=== PATIENT | female | born 1975 | race Caucasian/White ===

== ENCOUNTER 2018-01-12 16:07 | Observation (INO) | payer SELFPAY ==
--- NOTE | 2018-01-12 16:34 | EDM.PDOC ---
ED HPI GENERAL MEDICAL PROBLEM - General Chief Complaint: Abdominal Pain Stated Complaint: BRUSING ON ABDOMEN Time Seen by Provider: 01/12/18 16:08 Source of Information: Reports: Patient History Limitations: Reports: No Limitations - History of Present Illness INITIAL COMMENTS - FREE TEXT/NARRATIVE: HISTORY AND PHYSICAL: History of present illness: Patient is a 42-year-old female who presents to the emergency room today with complaints of abdominal pain. She states she routinely gets herself Lovenox injections and had noticed that the bruising was more extensive than normal. she states she has a pressure-type feeling across her abdomen with tenderness to palpation. This pressure in her abdomen "makes me feel almost short of breathe". Denies any fever, chills, chest pain or cough.denies any vomiting, diarrhea, constipation or dysuria. She states that she does have a history of chief and has been monitoring her stools, no blood noted in her urine or stools. She reports she has an implant form of control but has not had a menstrual period in 2 months. She states this is unusual for her and she is" very regular". Denies any concerns of as she has not been sexually active over the last few months, and has no concerns of STDs. History of Hypothyroidism, anemia and GI bleed requiring multiple blood transfusions, bowel obstruction, and Review of systems: As per history of present illness and below otherwise all systems reviewed and negative. Past medical history: As per history of present illness and as reviewed below otherwise noncontributory. Surgical history: As per history of present illness and as reviewed below otherwise noncontributory. Social history: No reported history of drug or alcohol abuse. Family history: As per history of present illness and as reviewed below otherwise noncontributory. Physical exam: General: well-developed and well-nourished 42-year-old female. Alert and oriented. Nontoxic appearing and in no acute distress. HEENT: Atraumatic, normocephalic, pupils equal and reactive bilaterally, negative for conjunctival pallor or scleral icterus, mucous membranes moist, throat clear, neck supple, nontender, trachea midline. No drooling or trismus noted. No meningeal signs Lungs: Clear to auscultation, breath sounds equal bilaterally, chest nontender. Heart: S1S2, regular rate and rhythm without overt murmur Abdomen: Soft, nondistended, diffuse tenderness throughout. Negative for masses or hepatosplenomegaly. Negative for costovertebral tenderness. Pelvis: Stable nontender. Genitourinary: Deferred. Rectal: Deferred. Skin: Large bruise noted above the umbilicus wrapping around to the left side, appears to be healing. Old midline scar below umbilicus. Intact, warm, dry. No lesions or rashes noted. Extremities: Atraumatic, moves all extremities per self without difficulty or deficits, negative for cords or calf pain. Neurovascular unremarkable. Neuro: Awake, alert, oriented. Cranial nerves II through XII unremarkable. Cerebellum unremarkable. Motor and sensory unremarkable throughout. Exam nonfocal. Notes: Elevated AST/ALT and amylase/lipase. CT shows koko distended to the upper limits of normal the small bowel loops in the abdomen and pelvis could be an early partial small bowel obstruction or an ileus. Dr Ruiz was consulted on this case and is agreeable to keeping this patient for observation. TSH is elevated, will inform admitting MD. Diagnostics: CBC, CMP, UA, HCGU, TSH, Abdomen/Pelvis CT, amylase, lipase Therapeutics: IV fluids, Zofran, Toradol Impression: Hypothyroidism Intractable abdominal Pain Plan: Observation admission to med/surg via Dr Ruiz Definitive disposition and diagnosis as appropriate pending reevaluation and review of above. Abdominal Pain Score (Numeric/FACES): 5 - Related Data Allergies Allergy/AdvReac Type Severity Reaction Status Date / Time latex Allergy Airway Verified 01/12/18 16:34 Tightness Home Meds: Home Meds Levothyroxine 2 tab PO DAILY 10/24/13 [History] Pain Pil Hydrocodone 1 tab PO ASDIRECTED PRN 04/30/14 [History] lamoTRIgine [LaMICtal] 150 mg PO BID 08/30/14 [History] Past Medical History Other Neuro History: Chronic jaw pain: Trigeminal neuralgia ED ROS GENERAL - Review of Systems Review Of Systems: ROS reveals no pertinent complaints other than HPI. ED EXAM, GI/ABD - Physical Exam Exam: See Below (See dictation) Course - Vital Signs Last Recorded V/S: Last Vital Signs Temp 97.9 F 01/12/18 21:19 Pulse 71 01/12/18 21:19 Resp 18 01/12/18 21:19 BP 126/93 H 01/12/18 21:19 Pulse Ox 97 01/12/18 21:19 - Orders/Labs/Meds Orders: Active Orders 24 hr Category Date Time Status Admission Status [Patient Status] [ADT] Stat ADT 01/12/18 19:17 Active Notify Provider Consults [RC] ASDIRECTED Care 01/12/18 19:19 Active Consult to Physician [CONS] Stat Cons 01/12/18 19:18 Active Nothing per Oral Now Diet [DIET] Diet 01/13/18 Breakfast Active Abdomen Pelvis w Cont [CT] Stat Exams 01/12/18 17:02 Taken HCG QUALITATIVE,URINE [URCHEM] Stat Lab 01/12/18 16:50 Ordered UA W/MICROSCOPIC [URIN] Stat Lab 01/12/18 16:50 Ordered Medication Orders Acetaminophen (Tylenol) 325 mg PO Q6H PRN PRN Reason: Pain Lactated Ringer's (Ringers, Lactated) 1,000 mls @ 125 mls/hr IV ASDIRECTED ANNALISE Pantoprazole Sodium (Protonix Iv) 40 mg IVPUSH DAILY ANNALISE Labs: Laboratory Tests 01/12/18 01/12/18 01/12/18 Range/Units 16:50 16:50 16:52 WBC 8.90 (4.0-11.0) K/uL RBC 3.94 L (4.30-5.90) M/uL Hgb 12.9 (12.0-16.0) g/dL Hct 37.8 (36.0-46.0) % MCV 95.9 (80.0-98.0) fL MCH 32.7 H (27.0-32.0) pg MCHC 34.1 (31.0-37.0) g/dL RDW Std Deviation 49.8 (28.0-62.0) fl RDW Coeff of Eris 14 (11.0-15.0) % Plt Count 369 (150-400) K/uL MPV 9.50 (7.40-12.00) fL Neut % (Auto) 52.3 (48.0-80.0) % Lymph % (Auto) 32.7 (16.0-40.0) % [place] % (Auto) 7.8 (0.0-15.0) % Eos % (Auto) 6.1 (0.0-7.0) % Baso % (Auto) 1.1 (0.0-1.5) % Neut # (Auto) 4.7 (1.4-5.7) K/uL Lymph # (Auto) 2.9 H (0.6-2.4) K/uL [place] # (Auto) 0.7 (0.0-0.8) K/uL Eos # (Auto) 0.5 (0.0-0.7) K/uL Baso # (Auto) 0.1 (0.0-0.1) K/uL Nucleated RBC % 0.0 /100WBC Nucleated RBCs # 0 K/uL Sodium (136-145) mmol/L Potassium (3.5-5.1) mmol/L Chloride (98-107) mmol/L Carbon Dioxide (21.0-32.0) mmol/L BUN (7.0-18.0) mg/dL Creatinine (0.6-1.0) mg/dL Est Cr Clr Drug Dosing mL/min Estimated GFR (MDRD) ml/min Glucose (74-106) mg/dL Calcium (8.5-10.1) mg/dL Total Bilirubin (0.2-1.0) mg/dL AST (15-37) IU/L ALT (14-63) IU/L Alkaline Phosphatase (46-116) U/L Total Protein (6.4-8.2) g/dL Albumin (3.4-5.0) g/dL Globulin (2.0-3.5) g/dL Albumin/Globulin Ratio (1.3-2.8) Amylase (25-115) U/L Lipase (73-393) U/L Free T4 (0.76-1.46) ng/dL TSH 3rd Generation (0.36-3.74) uIU/mL Urine Color YELLOW Urine Appearance CLEAR Urine pH 6.5 (5.0-8.0) Ur Specific Excel 1.010 (1.001-1.035) Urine Protein NEGATIVE (NEGATIVE) mg/dL Urine Glucose (UA) NEGATIVE (NEGATIVE) mg/dL Urine Ketones NEGATIVE (NEGATIVE) mg/dL Urine Occult Blood NEGATIVE (NEGATIVE) Urine Nitrite NEGATIVE (NEGATIVE) Urine Bilirubin NEGATIVE (NEGATIVE) Urine Urobilinogen 0.2 (<2.0) EU/dL Ur Leukocyte Esterase NEGATIVE (NEGATIVE) Urine RBC 0-1 (0-2/HPF) Urine WBC 0-1 (0-5/HPF) Ur Epithelial Cells FEW (NONE-FEW) Urine Bacteria RARE (NEGATIVE) Urine HCG, Qual NEGATIVE (NEGATIVE) 01/12/18 01/12/18 01/12/18 Range/Units 16:52 16:52 16:52 WBC (4.0-11.0) K/uL RBC (4.30-5.90) M/uL Hgb (12.0-16.0) g/dL Hct (36.0-46.0) % MCV (80.0-98.0) fL MCH (27.0-32.0) pg MCHC (31.0-37.0) g/dL RDW Std Deviation (28.0-62.0) fl RDW Coeff of Eris (11.0-15.0) % Plt Count (150-400) K/uL MPV (7.40-12.00) fL Neut % (Auto) (48.0-80.0) % Lymph % (Auto) (16.0-40.0) % [place] % (Auto) (0.0-15.0) % Eos % (Auto) (0.0-7.0) % Baso % (Auto) (0.0-1.5) % Neut # (Auto) (1.4-5.7) K/uL Lymph # (Auto) (0.6-2.4) K/uL [place] # (Auto) (0.0-0.8) K/uL Eos # (Auto) (0.0-0.7) K/uL Baso # (Auto) (0.0-0.1) K/uL Nucleated RBC % /100WBC Nucleated RBCs # K/uL Sodium 139 (136-145) mmol/L Potassium 4.0 (3.5-5.1) mmol/L Chloride 104 (98-107) mmol/L Carbon Dioxide 26.5 (21.0-32.0) mmol/L BUN 13 (7.0-18.0) mg/dL Creatinine 0.9 (0.6-1.0) mg/dL Est Cr Clr Drug Dosing 65.72 mL/min Estimated GFR (MDRD) > 60.0 ml/min Glucose 77 (74-106) mg/dL Calcium 8.7 (8.5-10.1) mg/dL Total Bilirubin 0.1 L (0.2-1.0) mg/dL AST 142 H (15-37) IU/L ALT 309 H (14-63) IU/L Alkaline Phosphatase 42 L (46-116) U/L Total Protein 7.0 (6.4-8.2) g/dL Albumin 3.7 (3.4-5.0) g/dL Globulin 3.3 (2.0-3.5) g/dL Albumin/Globulin Ratio 1.1 L (1.3-2.8) Amylase 134 H (25-115) U/L Lipase 475 H (73-393) U/L Free T4 0.12 L (0.76-1.46) ng/dL TSH 3rd Generation 210.19 H (0.36-3.74) uIU/mL Urine Color Urine Appearance Urine pH (5.0-8.0) Ur Specific Excel (1.001-1.035) Urine Protein (NEGATIVE) mg/dL Urine Glucose (UA) (NEGATIVE) mg/dL Urine Ketones (NEGATIVE) mg/dL Urine Occult Blood (NEGATIVE) Urine Nitrite (NEGATIVE) Urine Bilirubin (NEGATIVE) Urine Urobilinogen (<2.0) EU/dL Ur Leukocyte Esterase (NEGATIVE) Urine RBC (0-2/HPF) Urine WBC (0-5/HPF) Ur Epithelial Cells (NONE-FEW) Urine Bacteria (NEGATIVE) Urine HCG, Qual (NEGATIVE) Meds: Medications Generic Name Dose Route Start Last Admin Trade Name Freq PRN Reason Stop Dose Admin Acetaminophen 325 mg 01/12/18 21:26 Tylenol PO Q6H PRN Pain Lactated Ringer's 1,000 mls @ 125 mls/hr 01/12/18 21:30 Ringers, Lactated IV ASDIRECTED ANNALISE Pantoprazole Sodium 40 mg 01/13/18 09:00 Protonix Iv IVPUSH DAILY ANNALISE Discontinued Medications Generic Name Dose Route Start Last Admin Trade Name Freq PRN Reason Stop Dose Admin Sodium Chloride 1,000 mls @ 999 mls/hr 01/12/18 16:35 01/12/18 16:54 Normal Saline IV 01/12/18 17:35 999 mls/hr STAT ONE Administration Lactated Ringer's 1,000 mls @ 125 mls/hr 01/12/18 19:30 Ringers, Lactated IV ASDIRECTED [facility] Iopamidol 80 ml 01/12/18 18:12 01/12/18 18:13 Isovue-370 (76%) IVPUSH 01/12/18 18:13 80 ml ONETIME ONE Administration Ketorolac Tromethamine 30 mg 01/12/18 16:35 01/12/18 17:33 Toradol IVPUSH 01/12/18 16:36 Not Given ONETIME ONE Morphine Sulfate 2 mg 01/12/18 17:12 01/12/18 17:28 Morphine IVPUSH 01/12/18 17:13 2 mg ONETIME ONE Administration Morphine Sulfate 2 mg 01/12/18 18:42 01/12/18 18:50 Morphine IVPUSH 01/12/18 18:43 2 mg ONETIME ONE Administration Ondansetron HCl 4 mg 01/12/18 16:39 01/12/18 17:28 Zofran IVPUSH 01/12/18 16:40 4 mg ONETIME ONE Administration Departure - Departure Time of Disposition: 19:16 Disposition: Refer to Observation Clinical Impression: Hypothyroidism Qualifiers: Hypothyroidism type: unspecified Qualified Code(s): E03.9 - Hypothyroidism, unspecified Abdominal pain Qualifiers: Abdominal location: generalized Qualified Code(s): R10.84 - Generalized abdominal pain - Discharge Information - My Orders Last 24 Hours: My Active Orders 01/12/18 16:50 HCG QUALITATIVE,URINE [URCHEM] Stat UA W/MICROSCOPIC [URIN] Stat 01/12/18 17:02 Abdomen Pelvis w Cont [CT] Stat 01/12/18 19:17 Admission Status [Patient Status] [ADT] Stat 01/12/18 19:18 Consult to Physician [CONS] Stat 01/12/18 19:19 Notify Provider Consults [RC] ASDIRECTED 01/13/18 Breakfast Nothing per Oral Now Diet [DIET] - Assessment/Plan Last 24 Hours: My Active Orders 01/12/18 16:50 HCG QUALITATIVE,URINE [URCHEM] Stat UA W/MICROSCOPIC [URIN] Stat 01/12/18 17:02 Abdomen Pelvis w Cont [CT] Stat 01/12/18 19:17 Admission Status [Patient Status] [ADT] Stat 01/12/18 19:18 Consult to Physician [CONS] Stat 01/12/18 19:19 Notify Provider Consults [RC] ASDIRECTED 01/13/18 Breakfast Nothing per Oral Now Diet [DIET]
[2018-01-12] MEDS ORDERED: Sodium Chloride 0.9% 1,000 ML IV ONE (16:35)
[2018-01-12] MEDS ORDERED: Ketorolac 30 MG/ML SDV IVPUSH ONE (16:35)
[2018-01-12] MEDS ORDERED: Ondansetron 4 MG/2 ML SDV IVPUSH ONE (16:39)
[2018-01-12] MEDS ORDERED: Morphine 2 MG/ML Syringe IVPUSH ONE ×2 (17:12→18:42)
[2018-01-12 17:29] LABS: CHLORIDE,CL 104 mmol/L (98-107); SODIUM,NA 139 mmol/L (136-145)
[2018-01-12] MEDS ORDERED: Iopamidol 755 Mg/ML 100 ML Bottle IVPUSH ONE (18:12)
[2018-01-12] MEDS ORDERED: Lactated Ringers 1,000 ML IV SCH ×2 (19:30→21:30)
[2018-01-12] MEDS ORDERED: LORazepam 2 MG/ML SDV IVPUSH ONE (23:55)
--- NOTE | 2018-01-13 04:14 | CONS ---
DATE OF CONSULTATION: 01/12/2018 DATE OF : 1975 PRIMARY CARE PHYSICIAN: Ar Barnett M.D. A consult from the emergency room and also dictated as a history and physical. CONCERNING QUESTION: Possible small-bowel obstruction. HISTORY OF PRESENT ILLNESS: The patient is a 42-year-old lady with a very complex medical history and also because of her voice, sometimes things are not be easy to understand. The best I can make out, the patient was having abdominal pain and seen in the emergency room. Got a CAT scan. The CAT scan reads as early possible small-bowel obstruction versus ileus. Surgery was then consulted. The patient remarked that her diffuse abdominal bloating had been going on for 3 days and denied has abdominal pain but is complaining of discomfort. The patient had a history of SBO in the past in 2006 and denied today's feeling as the same as last time. The patient said today's feeling is much milder. Currently, she denied nausea or vomiting. She had a well-formed stool a couple hours ago in the emergency room. The best I can make out the patient to be on and off the Lovenox injection, increase dose of Coumadin, and then stop things like that. Apparently, the patient has PE in 2002 and then was treated with Lovenox injection, and then, the patient had gastric bypass in 2003 in [place], and then the treatment for the PE was finished, and she was happy until 2013, I believe that blood clot causes stroke and then anticoagulation restarted. More recently, I do not known when, she had oral surgery and all the Lovenox was stopped except one injection and the story kept on going. It is complicated and complex and cannot make out the timeframe, so fine to say she is not on anything right now regarding anticoagulation. In the emergency room, workup, white count is 8.9, H and H are 13 and 38. Total bilirubin is 0.1. AST and ALT are elevated to 100 and 300. Alkaline phosphatase is low at 42, and CK was high at 390. Amylase and lipase are also elevated. The TSH was elevated to 10, normal is 3.7. UA has no signs or symptoms of infection. The vitamin B12 was normal at 168. PAST MEDICAL HISTORY: Significant for no diabetes or NH. The patient has CVA, PE, and blood clot in the lower extremity and has been treated. PAST SURGICAL HISTORY: x3 and gastric bypass. SOCIAL HISTORY: The patient does not drink. FAMILY HISTORY: Noncontributory. ALLERGIES: Please refer to nursing for details. MEDICATION: Please refer to nursing for details. PHYSICAL EXAMINATION: GENERAL: A very pleasant lady, speaking in a very, very weird voice, getting clear later, in no acute distress. HEENT: Normocephalic and atraumatic. Sclerae anicteric. LUNGS: Clear to auscultation. HEART: Regular rate and rhythm. ABDOMEN: Soft, nondistended. No pulsating tender midline abdominal structure. Large bruise periumbilical and spanning about 12 cm. Normal bowel sounds. Nontender. IMPRESSION AND PLAN: Abdominal pain with the CT suggests ileus versus early possible small-bowel obstruction, well-formed stool just right now, and there was no blood and normal brown color. The patient will be admitted to observation, and depends on the morning if the situation not getting better, may repeat CAT scan with p.o. and IV contrast and repeat white count. For the time being n.p.o. except ice chips. We will consult hospitalist in the morning. As always, thank you for the kind referral. CJ / CORAL /[id number]
[2018-01-13] MEDS: Acetaminophen 325 MG/10.15 ML ML PO PRN ×2 (04:26→11:02)
[2018-01-13 06:32] LABS: CHLORIDE,CL 105 mmol/L (98-107); SODIUM,NA 140 mmol/L (136-145)
--- NOTE | 2018-01-13 08:40 | PCM.SURGPN ---
- General Info Date of Service: 01/13/18 Functional Status: Reports: Pain Controlled ("I have no pain" and passing gas) - Patient Data Vitals - Most Recent: Last Vital Signs Temp 97.5 F 01/13/18 04:00 Pulse 59 L 01/13/18 04:00 Resp 17 01/13/18 04:00 BP 104/67 01/13/18 04:00 Pulse Ox 97 01/13/18 04:00 Weight - Most Recent: 161 lb 3.2 oz I&O - Last 24 Hours: Intake & Output 01/12/18 01/13/18 01/13/18 22:59 06:59 14:59 Intake Total 800 Output Total 1400 Balance -600 Lab Results Last 24 Hrs: Laboratory Results - last 24 hr 01/12/18 01/12/18 01/12/18 Range/Units 16:50 16:50 16:52 WBC 8.90 (4.0-11.0) K/uL RBC 3.94 L (4.30-5.90) M/uL Hgb 12.9 (12.0-16.0) g/dL Hct 37.8 (36.0-46.0) % MCV 95.9 (80.0-98.0) fL MCH 32.7 H (27.0-32.0) pg MCHC 34.1 (31.0-37.0) g/dL RDW Std Deviation 49.8 (28.0-62.0) fl RDW Coeff of Eris 14 (11.0-15.0) % Plt Count 369 (150-400) K/uL MPV 9.50 (7.40-12.00) fL Neut % (Auto) 52.3 (48.0-80.0) % Lymph % (Auto) 32.7 (16.0-40.0) % [place] % (Auto) 7.8 (0.0-15.0) % Eos % (Auto) 6.1 (0.0-7.0) % Baso % (Auto) 1.1 (0.0-1.5) % Neut # (Auto) 4.7 (1.4-5.7) K/uL Lymph # (Auto) 2.9 H (0.6-2.4) K/uL [place] # (Auto) 0.7 (0.0-0.8) K/uL Eos # (Auto) 0.5 (0.0-0.7) K/uL Baso # (Auto) 0.1 (0.0-0.1) K/uL Nucleated RBC % 0.0 /100WBC Nucleated RBCs # 0 K/uL Sodium (136-145) mmol/L Potassium (3.5-5.1) mmol/L Chloride (98-107) mmol/L Carbon Dioxide (21.0-32.0) mmol/L BUN (7.0-18.0) mg/dL Creatinine (0.6-1.0) mg/dL Est Cr Clr Drug Dosing mL/min Estimated GFR (MDRD) ml/min Glucose (74-106) mg/dL Calcium (8.5-10.1) mg/dL Total Bilirubin (0.2-1.0) mg/dL AST (15-37) IU/L ALT (14-63) IU/L Alkaline Phosphatase (46-116) U/L Total Protein (6.4-8.2) g/dL Albumin (3.4-5.0) g/dL Globulin (2.0-3.5) g/dL Albumin/Globulin Ratio (1.3-2.8) Amylase (25-115) U/L Lipase (73-393) U/L Free T4 (0.76-1.46) ng/dL TSH 3rd Generation (0.36-3.74) uIU/mL Urine Color YELLOW Urine Appearance CLEAR Urine pH 6.5 (5.0-8.0) Ur Specific [place] 1.010 (1.001-1.035) Urine Protein NEGATIVE (NEGATIVE) mg/dL Urine Glucose (UA) NEGATIVE (NEGATIVE) mg/dL Urine Ketones NEGATIVE (NEGATIVE) mg/dL Urine Occult Blood NEGATIVE (NEGATIVE) Urine Nitrite NEGATIVE (NEGATIVE) Urine Bilirubin NEGATIVE (NEGATIVE) Urine Urobilinogen 0.2 (<2.0) EU/dL Ur Leukocyte Esterase NEGATIVE (NEGATIVE) Urine RBC 0-1 (0-2/HPF) Urine WBC 0-1 (0-5/HPF) Ur Epithelial Cells FEW (NONE-FEW) Urine Bacteria RARE (NEGATIVE) Urine HCG, Qual NEGATIVE (NEGATIVE) 01/12/18 01/12/18 01/12/18 Range/Units 16:52 16:52 16:52 WBC (4.0-11.0) K/uL RBC (4.30-5.90) M/uL Hgb (12.0-16.0) g/dL Hct (36.0-46.0) % MCV (80.0-98.0) fL MCH (27.0-32.0) pg MCHC (31.0-37.0) g/dL RDW Std Deviation (28.0-62.0) fl RDW Coeff of Eris (11.0-15.0) % Plt Count (150-400) K/uL MPV (7.40-12.00) fL Neut % (Auto) (48.0-80.0) % Lymph % (Auto) (16.0-40.0) % [place] % (Auto) (0.0-15.0) % Eos % (Auto) (0.0-7.0) % Baso % (Auto) (0.0-1.5) % Neut # (Auto) (1.4-5.7) K/uL Lymph # (Auto) (0.6-2.4) K/uL [place] # (Auto) (0.0-0.8) K/uL Eos # (Auto) (0.0-0.7) K/uL Baso # (Auto) (0.0-0.1) K/uL Nucleated RBC % /100WBC Nucleated RBCs # K/uL Sodium 139 (136-145) mmol/L Potassium 4.0 (3.5-5.1) mmol/L Chloride 104 (98-107) mmol/L Carbon Dioxide 26.5 (21.0-32.0) mmol/L BUN 13 (7.0-18.0) mg/dL Creatinine 0.9 (0.6-1.0) mg/dL Est Cr Clr Drug Dosing 65.72 mL/min Estimated GFR (MDRD) > 60.0 ml/min Glucose 77 (74-106) mg/dL Calcium 8.7 (8.5-10.1) mg/dL Total Bilirubin 0.1 L (0.2-1.0) mg/dL AST 142 H (15-37) IU/L ALT 309 H (14-63) IU/L Alkaline Phosphatase 42 L (46-116) U/L Total Protein 7.0 (6.4-8.2) g/dL Albumin 3.7 (3.4-5.0) g/dL Globulin 3.3 (2.0-3.5) g/dL Albumin/Globulin Ratio 1.1 L (1.3-2.8) Amylase 134 H (25-115) U/L Lipase 475 H (73-393) U/L Free T4 0.12 L (0.76-1.46) ng/dL TSH 3rd Generation 210.19 H (0.36-3.74) uIU/mL Urine Color Urine Appearance Urine pH (5.0-8.0) Ur Specific [place] (1.001-1.035) Urine Protein (NEGATIVE) mg/dL Urine Glucose (UA) (NEGATIVE) mg/dL Urine Ketones (NEGATIVE) mg/dL Urine Occult Blood (NEGATIVE) Urine Nitrite (NEGATIVE) Urine Bilirubin (NEGATIVE) Urine Urobilinogen (<2.0) EU/dL Ur Leukocyte Esterase (NEGATIVE) Urine RBC (0-2/HPF) Urine WBC (0-5/HPF) Ur Epithelial Cells (NONE-FEW) Urine Bacteria (NEGATIVE) Urine HCG, Qual (NEGATIVE) 01/13/18 01/13/18 Range/Units 05:55 05:55 WBC 8.36 (4.0-11.0) K/uL RBC 3.75 L (4.30-5.90) M/uL Hgb 12.0 (12.0-16.0) g/dL Hct 36.0 (36.0-46.0) % MCV 96.0 (80.0-98.0) fL MCH 32.0 (27.0-32.0) pg MCHC 33.3 (31.0-37.0) g/dL RDW Std Deviation 49.5 (28.0-62.0) fl RDW Coeff of Eris 14 (11.0-15.0) % Plt Count 344 (150-400) K/uL MPV 9.70 (7.40-12.00) fL Neut % (Auto) 44.5 L (48.0-80.0) % Lymph % (Auto) 37.7 (16.0-40.0) % [place] % (Auto) 7.9 (0.0-15.0) % Eos % (Auto) 8.3 H (0.0-7.0) % Baso % (Auto) 1.6 H (0.0-1.5) % Neut # (Auto) 3.7 (1.4-5.7) K/uL Lymph # (Auto) 3.2 H (0.6-2.4) K/uL [place] # (Auto) 0.7 (0.0-0.8) K/uL Eos # (Auto) 0.7 (0.0-0.7) K/uL Baso # (Auto) 0.1 (0.0-0.1) K/uL Nucleated RBC % 0.0 /100WBC Nucleated RBCs # 0 K/uL Sodium 140 (136-145) mmol/L Potassium 4.2 (3.5-5.1) mmol/L Chloride 105 (98-107) mmol/L Carbon Dioxide 30.1 (21.0-32.0) mmol/L BUN 9 (7.0-18.0) mg/dL Creatinine 1.0 (0.6-1.0) mg/dL Est Cr Clr Drug Dosing 59.15 mL/min Estimated GFR (MDRD) > 60.0 ml/min Glucose 78 (74-106) mg/dL Calcium 7.9 L (8.5-10.1) mg/dL Total Bilirubin 0.1 L (0.2-1.0) mg/dL AST 142 H (15-37) IU/L ALT 263 H (14-63) IU/L Alkaline Phosphatase 32 L (46-116) U/L Total Protein 5.7 L (6.4-8.2) g/dL Albumin 3.0 L (3.4-5.0) g/dL Globulin 2.7 (2.0-3.5) g/dL Albumin/Globulin Ratio 1.1 L (1.3-2.8) Amylase (25-115) U/L Lipase (73-393) U/L Free T4 (0.76-1.46) ng/dL TSH 3rd Generation (0.36-3.74) uIU/mL Urine Color Urine Appearance Urine pH (5.0-8.0) Ur Specific [place] (1.001-1.035) Urine Protein (NEGATIVE) mg/dL Urine Glucose (UA) (NEGATIVE) mg/dL Urine Ketones (NEGATIVE) mg/dL Urine Occult Blood (NEGATIVE) Urine Nitrite (NEGATIVE) Urine Bilirubin (NEGATIVE) Urine Urobilinogen (<2.0) EU/dL Ur Leukocyte Esterase (NEGATIVE) Urine RBC (0-2/HPF) Urine WBC (0-5/HPF) Ur Epithelial Cells (NONE-FEW) Urine Bacteria (NEGATIVE) Urine HCG, Qual (NEGATIVE) Med Orders - Current: Current Medications Acetaminophen (Tylenol) 325 mg PO Q6H PRN PRN Reason: Pain Last Admin: 01/13/18 04:26 Dose: 325 mg Lactated Ringer's (Ringers, Lactated) 1,000 mls @ 125 mls/hr IV ASDIRECTED [facility] Last Admin: 01/13/18 05:09 Dose: 125 mls/hr Pantoprazole Sodium (Protonix Iv) 40 mg IVPUSH DAILY [facility] Last Admin: 01/13/18 08:29 Dose: 40 mg Discontinued Medications Sodium Chloride (Normal Saline) 1,000 mls @ 999 mls/hr IV STAT ONE Stop: 01/12/18 17:35 Last Admin: 01/12/18 16:54 Dose: 999 mls/hr Lactated Ringer's (Ringers, Lactated) 1,000 mls @ 125 mls/hr IV ASDIRECTED [facility] Iopamidol (Isovue-370 (76%)) 80 ml IVPUSH ONETIME ONE Stop: 01/12/18 18:13 Last Admin: 01/12/18 18:13 Dose: 80 ml Ketorolac Tromethamine (Toradol) 30 mg IVPUSH ONETIME ONE Stop: 01/12/18 16:36 Last Admin: 01/12/18 17:33 Dose: Not Given Lorazepam (Ativan) 0.5 mg IVPUSH ONETIME ONE Stop: 01/12/18 23:56 Last Admin: 01/13/18 04:25 Dose: 0.5 mg Morphine Sulfate (Morphine) 2 mg IVPUSH ONETIME ONE Stop: 01/12/18 17:13 Last Admin: 01/12/18 17:28 Dose: 2 mg Morphine Sulfate (Morphine) 2 mg IVPUSH ONETIME ONE Stop: 01/12/18 18:43 Last Admin: 01/12/18 18:50 Dose: 2 mg Ondansetron HCl (Zofran) 4 mg IVPUSH ONETIME ONE Stop: 01/12/18 16:40 Last Admin: 01/12/18 17:28 Dose: 4 mg - Exam Lungs: Clear to Auscultation GI/Abdominal Exam: Normal Bowel Sounds, Soft, Non-Tender - Problem List Review Problem List Initiated/Reviewed/Updated: Yes - My Orders Last 24 Hours: Active Orders 24 hr Category Date Time Status Admission Status [Patient Status] [ADT] Routine ADT 01/12/18 21:24 Active Admission Status [Patient Status] [ADT] Stat ADT 01/12/18 19:17 Active Notify Provider Consults [RC] ASDIRECTED Care 01/12/18 19:19 Active Consult to Physician [CONS] Stat Cons 01/12/18 19:18 Active Clear Liquid Diet [DIET] Diet 01/13/18 Lunch Ordered NPO Now [Nothing per Oral Now Diet] [DIET] Diet 01/12/18 Dinner Active Abdomen Pelvis w Cont [CT] Stat Exams 01/12/18 17:02 Taken HCG QUALITATIVE,URINE [URCHEM] Stat Lab 01/12/18 16:50 Ordered UA W/MICROSCOPIC [URIN] Stat Lab 01/12/18 16:50 Ordered Acetaminophen [Tylenol] Med 01/12/18 21:26 Active 325 mg PO Q6H PRN Lactated Ringers [Ringers, Lactated] 1,000 ml Med 01/12/18 21:30 Active IV ASDIRECTED Pantoprazole [ProTONIX IV] Med 01/13/18 09:00 Active 40 mg IVPUSH DAILY Medication Orders Acetaminophen (Tylenol) 325 mg PO Q6H PRN PRN Reason: Pain Last Admin: 01/13/18 04:26 Dose: 325 mg Lactated Ringer's (Ringers, Lactated) 1,000 mls @ 125 mls/hr IV ASDIRECTED [facility] Last Admin: 01/13/18 05:09 Dose: 125 mls/hr Pantoprazole Sodium (Protonix Iv) 40 mg IVPUSH DAILY [facility] Last Admin: 01/13/18 08:29 Dose: 40 mg - Assessment Assessment (Free Text/Narrative):: Resolving ileus, start on po clear liquid; if elvi, will dc home and fu in 1 wk - Plan Plan (Free Text/Narrative):: Resolving ileus, start on po clear liquid; if elvi, will dc home and fu in 1 wk
[2018-01-13] MEDS ORDERED: Pantoprazole 40 MG Vial IVPUSH SCH (09:00)
--- NOTE | 2018-01-13 10:22 | CT ---
EXAM DATE: 01/12/18 PATIENT'S AGE: 42 Patient: MARIELA JOHNSON Facility: [place], [place] Site . Site : 1975 Study: CT Abdomen/Pelvis [id number]/12/2018 6:16:30 PM Ordering Physician: Doctor Husain Final Report: INDICATION: Abdominal pain. Pressure. Tightness. TECHNIQUE: CT of abdomen and pelvis performed after IV injection of 80 mL of Isovue-370. COMPARISON: CT 01/27/2010. FINDINGS: Moderate diffuse subcutaneous edema more prominent. Postsurgical changes of prior gastric bypass surgery again noted. Bibasilar atelectasis and scarring. Trace left pleural effusion new. Probable trace amount of pleural fluid or pleural thickening on the right. Wall of the distal esophagus is mildly thickened. Cortical thinning both kidneys. Heterogeneous uterus. Small amount of free fluid in the pelvis posteriorly likely physiologic. Cystic lesion or follicle in the right ovary measuring approximately 2 cm should be physiologic. Fluid-filled jejunal and ileal loops throughout the abdomen pelvis with a few air-fluid levels with transition to small caliber in the left pelvis. Findings could be related to an early partial small bowel obstruction or an ileus. Follow -up imaging suggested to reassess as clinically desired. Skin thickening involving the left anterior pelvic wall new. Remainder negative. IMPRESSION: 1. Gas distended Upper limits of normal small bowel loops in the abdomen pelvis with air-fluid levels with transition to smaller caliber in the left pelvis could be related to an early partial small bowel obstruction or an ileus. Follow -up imaging suggested as clinically desired. 2. Postsurgical changes of prior gastric bypass surgery. 3. Moderately prominent subcutaneous edema more prominent. 4. Cystic lesion right ovary new and likely physiologic with small amount of free fluid in the pelvis posteriorly. 5. Very small new left pleural effusion. Other findings as above. Please note that all CT scans at this facility use dose modulation, iterative reconstruction, and/or weight-based dosing when appropriate to reduce radiation dose to as low as reasonably achievable. Dictated by Angel Lopez MD @ Jan 12 2018 7:01PM (Electronic Signature) Report Signed by Proxy. ETTA
[2018-01-13 12:31] VITALS: BP 113/65
== END 2018-01-13 15:32 | disposition home or self-care (01) ==
LOC: MW.ED 16:07 → MW.MS 19:27
PROVIDERS: ADMIT Surgery; ATTEND Surgery
DX: R10.9 Unspecified abdominal pain (principal); Z86.73 Personal history of transient ischemic attack (TIA), and cerebral infarction without residual deficits; Z86.711 Personal history of pulmonary embolism; Z98.84 Bariatric surgery status
CPT/HCPCS: 36415; 74177; 80053; 81001; 81025; 82150; 83690; 84439; 84443; 85025; 96361; 96374; 96375; 96376; 99285; A9270; C9113; G0378; J2060; J2270; J2405; J7040; J7120; Q9967; 99283

== ENCOUNTER 2018-06-26 07:44 | Emergency (ER) | payer SELFPAY ==
[2018-06-26] MEDS ORDERED: Sodium Chloride 0.9% 1,000 ML IV ONE (08:15)
--- NOTE | 2018-06-26 08:23 | EDM.PDOC ---
ED HPI GENERAL MEDICAL PROBLEM - General Chief Complaint: Eye Problems Stated Complaint: STOMACH PAINS Time Seen by Provider: 06/26/18 07:59 - History of Present Illness INITIAL COMMENTS - FREE TEXT/NARRATIVE: HISTORY AND PHYSICAL: History of present illness: Patient is a 43-year-old female with history of chronic intermittent abdominal pain or sensory concern of abdominal pain disability without associated nausea vomiting fever chills she's had no trauma she denies urinary symptoms. She has been seen in the past for same including by general surgery was following her. Review of systems: As per history of present illness and below otherwise all systems reviewed and negative. Past medical history: As per history of present illness and as reviewed below otherwise noncontributory. Surgical history: As per history of present illness and as reviewed below otherwise noncontributory. Social history: No reported history of drug or alcohol abuse. Family history: As per history of present illness and as reviewed below otherwise noncontributory. Physical exam: HEENT: Atraumatic, normocephalic, pupils reactive, negative for conjunctival pallor or scleral icterus, mucous membranes moist, throat clear, neck supple, nontender, trachea midline. Lungs: Clear to auscultation, breath sounds equal bilaterally, chest nontender. Heart: S1S2, regular, negative for clicks, rubs, or JVD. Abdomen: Soft, nondistended, no localized tenderness Negative for masses or hepatosplenomegaly. Negative for costovertebral tenderness. Pelvis: Stable nontender. Genitourinary: Deferred. Rectal: Deferred. Extremities: Atraumatic, negative for cords or calf pain. Neurovascular unremarkable. Neuro: Awake, alert, oriented. Cranial nerves II through XII unremarkable. Cerebellum unremarkable. Motor and sensory unremarkable throughout. Exam nonfocal. Diagnostics: CBC CMP amylase lipase UA urine drug screen BNP CT abdomen and pelvis with IV contrast chest x-ray Therapeutics: Saline at 1 L bolus Impression: #1 abdominal pain Definitive disposition and diagnosis as appropriate pending reevaluation and review of above. 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: Musculoskeletal History: Reports: None Neurological History: Reports: CVA, Other (See Below) Other Neuro History: Chronic jaw pain: Trigeminal neuralgia Psychiatric History: Reports: None Endocrine/Metabolic History: Reports: None Hematologic History: Reports: None Immunologic History: Reports: None Oncologic (Cancer) History: Reports: None Dermatologic History: Reports: None - Infectious Disease History Infectious Disease History: Reports: Chicken Pox - Past Surgical History Head Surgeries/Procedures: Reports: None HEENT Surgical History: Reports: None Cardiovascular Surgical History: Reports: None Respiratory Surgical History: Reports: None GI Surgical History: Reports: None Female Surgical History: Reports: None Endocrine Surgical History: Reports: None Neurological Surgical History: Reports: None Musculoskeletal Surgical History: Reports: None Oncologic Surgical History: Reports: None Dermatological Surgical History: Reports: None Social & Family History - Family History Family Medical History: Noncontributory - Tobacco Use Smoking Status *Q: Current Every Day Smoker Years of Tobacco use: 10 Packs/Tins Daily: 0.4 - Caffeine Use Caffeine Use: Reports: Coffee, Energy Drinks - Recreational Drug Use Recreational Drug Use: No ED ROS GENERAL - Review of Systems Review Of Systems: ROS reveals no pertinent complaints other than HPI. ED EXAM GENERAL W FULL EYE - Physical Exam Exam: See Below (The dictation) Course - Vital Signs Last Recorded V/S: Last Vital Signs Temp 36.4 C 06/26/18 07:58 Pulse 76 06/26/18 10:03 Resp 16 06/26/18 10:03 BP 133/94 H 06/26/18 10:03 Pulse Ox 100 06/26/18 10:03 - Orders/Labs/Meds Labs: Laboratory Tests 06/26/18 06/26/18 06/26/18 Range/Units 08:00 08:00 08:00 WBC 9.79 (4.0-11.0) K/uL RBC 4.56 (4.30-5.90) M/uL Hgb 14.9 (12.0-16.0) g/dL Hct 43.7 (36.0-46.0) % MCV 95.8 (80.0-98.0) fL MCH 32.7 H (27.0-32.0) pg MCHC 34.1 (31.0-37.0) g/dL RDW Std Deviation 49.9 (28.0-62.0) fl RDW Coeff of Eris 14 (11.0-15.0) % Plt Count 458 H (150-400) K/uL MPV 9.40 (7.40-12.00) fL Neut % (Auto) 63.4 (48.0-80.0) % Lymph % (Auto) 22.0 (16.0-40.0) % [place] % (Auto) 7.2 (0.0-15.0) % Eos % (Auto) 4.9 (0.0-7.0) % Baso % (Auto) 2.5 H (0.0-1.5) % Neut # (Auto) 6.2 H (1.4-5.7) K/uL Lymph # (Auto) 2.2 (0.6-2.4) K/uL [place] # (Auto) 0.7 (0.0-0.8) K/uL Eos # (Auto) 0.5 (0.0-0.7) K/uL Baso # (Auto) 0.2 H (0.0-0.1) K/uL Nucleated RBC % 0.0 /100WBC Nucleated RBCs # 0 K/uL INR 1.02 Sodium 137 (136-145) mmol/L Potassium 3.7 (3.5-5.1) mmol/L Chloride 101 (98-107) mmol/L Carbon Dioxide 24.2 (21.0-32.0) mmol/L BUN 8 (7.0-18.0) mg/dL Creatinine 0.8 (0.6-1.0) mg/dL Est Cr Clr Drug Dosing 73.19 mL/min Estimated GFR (MDRD) > 60.0 ml/min Glucose 96 (74-106) mg/dL Calcium 9.9 (8.5-10.1) mg/dL Total Bilirubin 0.3 (0.2-1.0) mg/dL AST 74 H (15-37) IU/L ALT 99 H (14-63) IU/L Alkaline Phosphatase 49 (46-116) U/L B-Natriuretic Peptide (<100) PG/ML Total Protein 9.2 H (6.4-8.2) g/dL Albumin 4.5 (3.4-5.0) g/dL Globulin 4.7 H (2.6-4.0) g/dL Albumin/Globulin Ratio 1.0 (0.9-1.6) Amylase 79 (25-115) U/L Lipase 218 (73-393) U/L Urine Color Urine Appearance Urine pH (5.0-8.0) Ur Specific [place] (1.001-1.035) Urine Protein (NEGATIVE) mg/dL Urine Glucose (UA) (NEGATIVE) mg/dL Urine Ketones (NEGATIVE) mg/dL Urine Occult Blood (NEGATIVE) Urine Nitrite (NEGATIVE) Urine Bilirubin (NEGATIVE) Urine Urobilinogen (<2.0) EU/dL Ur Leukocyte Esterase (NEGATIVE) Urine Opiates Screen (NEGATIVE) Ur Oxycodone Screen (NEGATIVE) Urine Methadone Screen (NEGATIVE) Ur Barbiturates Screen (NEGATIVE) Ur Phencyclidine Scrn (NEGATIVE) Ur Amphetamine Screen (NEGATIVE) U Methamphetamines Scrn (NEGATIVE) U Benzodiazepines Scrn (NEGATIVE) U Cocaine Metab Screen (NEGATIVE) U Marijuana (THC) Screen (NEGATIVE) 06/26/18 06/26/18 06/26/18 Range/Units 08:00 09:13 09:13 WBC (4.0-11.0) K/uL RBC (4.30-5.90) M/uL Hgb (12.0-16.0) g/dL Hct (36.0-46.0) % MCV (80.0-98.0) fL MCH (27.0-32.0) pg MCHC (31.0-37.0) g/dL RDW Std Deviation (28.0-62.0) fl RDW Coeff of Eris (11.0-15.0) % Plt Count (150-400) K/uL MPV (7.40-12.00) fL Neut % (Auto) (48.0-80.0) % Lymph % (Auto) (16.0-40.0) % [place] % (Auto) (0.0-15.0) % Eos % (Auto) (0.0-7.0) % Baso % (Auto) (0.0-1.5) % Neut # (Auto) (1.4-5.7) K/uL Lymph # (Auto) (0.6-2.4) K/uL [place] # (Auto) (0.0-0.8) K/uL Eos # (Auto) (0.0-0.7) K/uL Baso # (Auto) (0.0-0.1) K/uL Nucleated RBC % /100WBC Nucleated RBCs # K/uL INR Sodium (136-145) mmol/L Potassium (3.5-5.1) mmol/L Chloride (98-107) mmol/L Carbon Dioxide (21.0-32.0) mmol/L BUN (7.0-18.0) mg/dL Creatinine (0.6-1.0) mg/dL Est Cr Clr Drug Dosing mL/min Estimated GFR (MDRD) ml/min Glucose (74-106) mg/dL Calcium (8.5-10.1) mg/dL Total Bilirubin (0.2-1.0) mg/dL AST (15-37) IU/L ALT (14-63) IU/L Alkaline Phosphatase (46-116) U/L B-Natriuretic Peptide 2 (<100) PG/ML Total Protein (6.4-8.2) g/dL Albumin (3.4-5.0) g/dL Globulin (2.6-4.0) g/dL Albumin/Globulin Ratio (0.9-1.6) Amylase (25-115) U/L Lipase (73-393) U/L Urine Color YELLOW Urine Appearance CLEAR Urine pH 7.0 (5.0-8.0) Ur Specific [place] <= 1.005 (1.001-1.035) Urine Protein NEGATIVE (NEGATIVE) mg/dL Urine Glucose (UA) NEGATIVE (NEGATIVE) mg/dL Urine Ketones NEGATIVE (NEGATIVE) mg/dL Urine Occult Blood NEGATIVE (NEGATIVE) Urine Nitrite NEGATIVE (NEGATIVE) Urine Bilirubin NEGATIVE (NEGATIVE) Urine Urobilinogen 0.2 (<2.0) EU/dL Ur Leukocyte Esterase NEGATIVE (NEGATIVE) Urine Opiates Screen NEGATIVE (NEGATIVE) Ur Oxycodone Screen NEGATIVE (NEGATIVE) Urine Methadone Screen NEGATIVE (NEGATIVE) Ur Barbiturates Screen NEGATIVE (NEGATIVE) Ur Phencyclidine Scrn NEGATIVE (NEGATIVE) Ur Amphetamine Screen NEGATIVE (NEGATIVE) U Methamphetamines Scrn NEGATIVE (NEGATIVE) U Benzodiazepines Scrn NEGATIVE (NEGATIVE) U Cocaine Metab Screen NEGATIVE (NEGATIVE) U Marijuana (THC) Screen NEGATIVE (NEGATIVE) Meds: Medications Discontinued Medications Generic Name Dose Route Start Last Admin Trade Name Freq PRN Reason Stop Dose Admin Sodium Chloride 1,000 mls @ 999 mls/hr 06/26/18 08:15 06/26/18 08:35 Normal Saline IV 06/26/18 09:15 999 mls/hr STAT ONE Administration Iopamidol 100 ml 06/26/18 10:03 06/26/18 10:09 Isovue Multipack-370 (76%) IVPUSH 06/26/18 10:04 100 ml ONETIME ONE Administration Ketorolac Tromethamine 15 mg 06/26/18 10:45 06/26/18 10:48 Toradol IVPUSH 06/26/18 10:46 15 mg ONETIME ONE Administration Ketorolac Tromethamine Confirm 06/26/18 10:46 06/26/18 10:49 Toradol Administered 06/26/18 10:47 Not Given Dose 30 mg .ROUTE .STK-MED ONE Ondansetron HCl 4 mg 06/26/18 08:30 06/26/18 08:35 Zofran IVPUSH 06/26/18 08:31 4 mg ONETIME ONE Administration Departure - Departure Time of Disposition: 11:00 Disposition: Home, Self-Care 01 Condition: Good Clinical Impression: Abdominal pain - Discharge Information Instructions: Abdominal Pain, Adult, [id number] Referrals: PCP,None [Primary Care Provider] - Forms: ED Department Discharge Additional Instructions: Push fluids, motrin/tylenol for pain. Follow up with your primary care provider in the next week.
[2018-06-26] MEDS ORDERED: Ondansetron 4 MG/2 ML SDV IVPUSH ONE (08:30)
[2018-06-26 09:20] LABS: CHLORIDE,CL 101 mmol/L (98-107); SODIUM,NA 137 mmol/L (136-145)
[2018-06-26] MEDS ORDERED: Iopamidol 755 Mg/ML 100 ML Bottle IVPUSH ONE (09:52)
[2018-06-26] MEDS ORDERED: Iopamidol 755 MG/ML 200 ML Multipack Bottle IVPUSH ONE (10:03)
--- NOTE | 2018-06-26 10:07 | CR ---
EXAMINATION: Portable chest radiograph. HISTORY: Shortness of breath. FINDINGS: The trachea is midline. The cardiomediastinal silhouette is within normal limits. No pulmonary infiltrates, effusions or pneumothorax. Mild dextrocurvature of the thoracic spine. Bone mineralization is normal. IMPRESSION: No acute cardiopulmonary process.
--- NOTE | 2018-06-26 10:30 | CT ---
CT of the abdomen and pelvis with contrast. HISTORY: Pain TECHNIQUE: Axial CT images were obtained of the abdomen and pelvis following administration of 97 mL of Isovue-370 in the right antecubital fossa without complication. Coronal and sagittal reconstructions obtained. FINDINGS: The lung bases are clear, no focal consolidation. The liver, spleen, adrenal glands, and pancreas appear normal. The gallbladder is normal. There is no bulky retroperitoneal lymphadenopathy or abdominal ascites. Postsurgical changes are noted secondary to gastric bypass. The kidneys enhance and function symmetrically without evidence of obstructive uropathy. The large and small bowel are normal in caliber without evidence of obstruction. No focal pericolonic inflammation or stranding. The appendix is normal. No significant free pelvic fluid. No free air. Small para ovarian cyst noted on the right. The uterus is unremarkable. Urinary bladder is normal. No suspicious osseous abnormalities. IMPRESSION: 1. No acute findings noted within the abdomen or pelvis.
[2018-06-26] MEDS ORDERED: Ketorolac 30 MG/ML SDV IVPUSH ONE (10:45)
[2018-06-26] MEDS ORDERED: Ketorolac 30 MG/ML SDV ONE (10:46)
[2018-06-26 11:10] VITALS: BP 149/101
== END 2018-06-26 11:09 | disposition home or self-care (01) ==
LOC: MW.ED 07:44
DX: R10.9 Unspecified abdominal pain (principal); F17.210 Nicotine dependence, cigarettes, uncomplicated; Z79.899 Other long term (current) drug therapy; Z91.040 Latex allergy status
CPT/HCPCS: 36415; 71045; 74177; 80053; 80305; 81003; 82150; 83690; 83880; 85025; 85610; 96361; 96374; 96375; 99284; J1885; J2405; J7040; Q9967; 99283

== ENCOUNTER 2019-03-16 14:06 | Emergency (ER) | payer SELFPAY ==
[2019-03-16] MEDS ORDERED: methylPREDNISolone Sodium Succinate 125 MG/2 ML SDV IM ONE (14:49)
--- NOTE | 2019-03-16 14:49 | EDM.PDOC ---
ED HPI GENERAL MEDICAL PROBLEM - General Chief Complaint: Skin Complaint Stated Complaint: RASH ON SIDE AND PAIN IN ARMS AND LEGS Time Seen by Provider: 03/16/19 14:45 Source of Information: Reports: Patient History Limitations: Reports: No Limitations - History of Present Illness INITIAL COMMENTS - FREE TEXT/NARRATIVE: HISTORY AND PHYSICAL: History of present illness: Patient is a 43-year-old female who presents to the emergency room today with complaints of rash to the right torso and nausea. She states she noticed a rash to the right torso and has noticed "a few bumps" to the right side of her abdominal wall and left groin. Does not recall any new exposures or allergies. Patient states she does have chronic pain and has some chronic myalgias of her upper and lower extremities. States she has had some mild nausea without vomiting over the past 2 days. Patient denies any fever, chills, headache, change in vision, syncope or near syncope. Denies any chest pain, back pain, shortness of breath or cough. Denies any abdominal pain, vomiting, diarrhea, constipation or dysuria. Has not noted any blood in urine or stool. Patient has been eating and drinking appropriately. Review of systems: As per history of present illness and below otherwise all systems reviewed and negative. Past medical history: As per history of present illness and as reviewed below otherwise noncontributory. Surgical history: As per history of present illness and as reviewed below otherwise noncontributory. Social history: See social history for further information Family history: As per history of present illness and as reviewed below otherwise noncontributory. Physical exam: General: Well-developed and well-nourished 43-year-old female. Alert and oriented. Nontoxic appearing and in no acute distress. HEENT: Atraumatic, normocephalic, pupils equal and reactive bilaterally, negative for conjunctival pallor or scleral icterus, mucous membranes moist, trachea midline. No drooling or trismus noted. No meningeal signs. No hot potato voice noted. Lungs: Clear to auscultation, breath sounds equal bilaterally, chest nontender. Heart: S1S2, regular rate and rhythm without overt murmur Abdomen: Soft, nondistended, nontender. Negative for masses or hepatosplenomegaly. Negative for costovertebral tenderness. Skin: A few isolated red pinpoint spots noted to left lateral abdomen and right posterior hip. Otherwise skin is intact, warm, dry. No lesions noted. Extremities: Atraumatic, moves all extremities per self without difficulty or deficits, negative for cords or calf pain. Neurovascular unremarkable. Neuro: Awake, alert, oriented. Cranial nerves II through XII unremarkable. Cerebellum unremarkable. Motor and sensory unremarkable throughout. Exam nonfocal. Notes: The rash that she is complaining about appears infrequent, only noted a few small red pin point dots. Does not appear infectious or viral, rather a contact dermatitis. Will do some lab work as she states she has multiple chronic health problems and is concerned that she could be "sick". Lab work is unremarkable. Medication and supportive care measures were reviewed and discussed. Voices understanding and is agreeable to plan of care. Denies any further questions or concerns at this time. Diagnostics: CBC, BMP Therapeutics: Solu-Medrol, Zofran Prescription: Medrol Dosepak Impression: Atopic Dermatitis Nausea Plan: 1. Avoid triggers. Continue to monitor for possible exposures/triggers/foods. 2. While symptomatic continue to routinely take Benadryl 50mg every 4-6 hours and Zantac 150mg twice daily. Take the Medrol dose pack as prescribed. 3. You may use topical calamine lotion, cool tempid oatmeal baths, Aveeno bath/ lotions. 4. Please follow up with your Primary care doctor as we discussed. Return to the ED as needed and as discussed. Definitive disposition and diagnosis as appropriate pending reevaluation and review of above. 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: Musculoskeletal History: Reports: None Neurological History: Reports: CVA, Other (See Below) Other Neuro History: Chronic jaw pain: Trigeminal neuralgia Psychiatric History: Reports: None Endocrine/Metabolic History: Reports: None Hematologic History: Reports: None Immunologic History: Reports: None Oncologic (Cancer) History: Reports: None Dermatologic History: Reports: None - Infectious Disease History Infectious Disease History: Reports: None - Past Surgical History Head Surgeries/Procedures: Reports: None HEENT Surgical History: Reports: None Cardiovascular Surgical History: Reports: None Respiratory Surgical History: Reports: None GI Surgical History: Reports: None Female Surgical History: Reports: None Endocrine Surgical History: Reports: None Neurological Surgical History: Reports: None Musculoskeletal Surgical History: Reports: None Oncologic Surgical History: Reports: None Dermatological Surgical History: Reports: None Social & Family History - Family History Family Medical History: Noncontributory - Tobacco Use Smoking Status *Q: Current Every Day Smoker Years of Tobacco use: 20 Packs/Tins Daily: 0.5 - Caffeine Use Caffeine Use: Reports: Coffee, Energy Drinks - Recreational Drug Use Recreational Drug Use: No ED ROS GENERAL - Review of Systems Review Of Systems: ROS reveals no pertinent complaints other than HPI. ED EXAM, SKIN/RASH Exam: See Below (See dictation) Course - Vital Signs Last Recorded V/S: Last Vital Signs Temp 97.9 F 03/16/19 14:21 Pulse 108 H 03/16/19 14:21 Resp 18 03/16/19 14:21 BP 154/104 H 03/16/19 14:29 Pulse Ox 97 03/16/19 14:21 - Orders/Labs/Meds Labs: Laboratory Tests 03/16/19 03/16/19 Range/Units 15:02 15:02 WBC 5.89 (4.0-11.0) K/uL RBC 4.33 (4.30-5.90) M/uL Hgb 13.6 (12.0-16.0) g/dL Hct 39.5 (36.0-46.0) % MCV 91.2 (80.0-98.0) fL MCH 31.4 (27.0-32.0) pg MCHC 34.4 (31.0-37.0) g/dL RDW Std Deviation 53.5 (28.0-62.0) fl RDW Coeff of Eris 16 H (11.0-15.0) % Plt Count 247 (150-400) K/uL MPV 9.40 (7.40-12.00) fL Neut % (Auto) 61.5 (48.0-80.0) % Lymph % (Auto) 22.8 (16.0-40.0) % [place] % (Auto) 7.3 (0.0-15.0) % Eos % (Auto) 7.0 (0.0-7.0) % Baso % (Auto) 1.4 (0.0-1.5) % Neut # (Auto) 3.6 (1.4-5.7) K/uL Lymph # (Auto) 1.3 (0.6-2.4) K/uL [place] # (Auto) 0.4 (0.0-0.8) K/uL Eos # (Auto) 0.4 (0.0-0.7) K/uL Baso # (Auto) 0.1 (0.0-0.1) K/uL Nucleated RBC % 0.0 /100WBC Nucleated RBCs # 0 K/uL Sodium 139 (136-145) mmol/L Potassium 3.5 (3.5-5.1) mmol/L Chloride 103 (98-107) mmol/L Carbon Dioxide 21.2 (21.0-32.0) mmol/L BUN 10 (7.0-18.0) mg/dL Creatinine 0.9 (0.6-1.0) mg/dL Est Cr Clr Drug Dosing 65.06 mL/min Estimated GFR (MDRD) > 60.0 ml/min Glucose 94 (74-106) mg/dL Calcium 8.8 (8.5-10.1) mg/dL Meds: Medications Discontinued Medications Generic Name Dose Route Start Last Admin Trade Name Nateq PRN Reason Stop Dose Admin Methylprednisolone Sodium Succinate 125 mg 03/16/19 14:49 03/16/19 15:17 Solu-Medrol IM 03/16/19 14:50 125 mg ONETIME ONE Administration Ondansetron HCl 4 mg 03/16/19 14:52 03/16/19 15:17 Zofran Odt PO 03/16/19 14:53 4 mg ONETIME ONE Administration Departure - Departure Time of Disposition: 15:46 Disposition: Home, Self-Care 01 Clinical Impression: Nausea Atopic dermatitis Qualifiers: Atopic dermatitis type: unspecified Qualified Code(s): L20.9 - Atopic dermatitis, unspecified - Discharge Information Instructions: Contact Dermatitis, [id number] Referrals: PCP,Unknown [Primary Care Provider] - Forms: ED Department Discharge Additional Instructions: The following information is given to patients seen in the emergency department who are being discharged to home. This information is to outline your options for follow-up care. We provide all patients seen in our emergency department with a follow-up referral. The need for follow-up, as well as the timing and circumstances, are variable depending upon the specifics of your emergency department visit. If you don't have a primary care physician on staff, we will provide you with a referral. We always advise you to contact your personal physician following an emergency department visit to inform them of the circumstance of the visit and for follow-up with them and/or the need for any referrals to a consulting specialist. The emergency department will also refer you to a specialist when appropriate. This referral assures that you have the opportunity for follow-up care with a specialist. All of these measure are taken in an effort to provide you with optimal care, which includes your follow-up. Under all circumstances we always encourage you to contact your private physician who remains a resource for coordinating your care. When calling for follow-up care, please make the office aware that this follow-up is from your recent emergency room visit. If for any reason you are refused follow-up, please contact the [facility] Emergency Department at and asked to speak to the emergency department charge nurse. [facility] Primary [facility] [address] [place] [address] [place] [address] 1. Avoid triggers. Continue to monitor for possible exposures/triggers/foods. 2. While symptomatic continue to routinely take Benadryl 50mg every 4-6 hours and Zantac 150mg twice daily. Take the Medrol dose pack as prescribed. 3. You may use topical calamine lotion, cool tempid oatmeal baths, Aveeno bath/ lotions. 4. Please follow up with your Primary care doctor as we discussed. Return to the ED as needed and as discussed.
[2019-03-16] MEDS ORDERED: Ondansetron 4 MG Tab.DIS PO ONE (14:52)
[2019-03-16 15:37] LABS: BLOOD UREA NITROGEN,BUN 10 mg/dL (7.0-18.0); CARBON DIOXIDE,CO2 21.2 mmol/L (21.0-32.0); CHLORIDE,CL 103 mmol/L (98-107); GLUCOSE RANDOM 94 mg/dL (74-106); POTASSIUM,K 3.5 mmol/L (3.5-5.1); SODIUM,NA 139 mmol/L (136-145)
[2019-03-16 16:01] VITALS: BP 145/91; PULSE 75
== END 2019-03-16 16:00 | disposition home or self-care (01) ==
LOC: MW.ED 14:06
DX: R11.0 Nausea (principal); L20.9 Atopic dermatitis, unspecified; F17.210 Nicotine dependence, cigarettes, uncomplicated; Z91.040 Latex allergy status
CPT/HCPCS: 36415; 80048; 85025; 96372; 99283; A9270; J2930

== ENCOUNTER 2022-05-18 22:05 | Emergency (ER) | payer SELFPAY ==
[2022-05-19 00:51] VITALS: BP 124/78; PULSE 71
== END 2022-05-19 00:50 | disposition home or self-care (01) ==
LOC: MW.ED 22:05
DX: S06.0X1A Concussion with loss of consciousness of 30 minutes or less, initial encounter (principal); S93.402A Sprain of unspecified ligament of left ankle, initial encounter; S60.211A Contusion of right wrist, initial encounter; Z91.040 Latex allergy status; Z79.899 Other long term (current) drug therapy; Y04.8XXA Assault by other bodily force, initial encounter
CPT/HCPCS: 70450; 70450-26; 70486; 70486-26; 73110-26-RT; 73110-RT; 73610-26-LT; 73610-LT; 99285

== ENCOUNTER 2022-05-22 14:00 | Emergency (ER) | payer SELFPAY ==
[2022-05-22] MEDS ORDERED: Ondansetron 4 MG/2 ML SDV IVPUSH ONE (16:56)
[2022-05-22] MEDS ORDERED: Sodium Chloride 0.9% 1,000 ML IV ONE (16:56)
[2022-05-22] MEDS ORDERED: HYDROmorphone 1 MG/ML Syringe IVPUSH ONE ×2 (16:56→20:13)
[2022-05-22 17:05] VITALS: BP 147/101; PULSE 106
[2022-05-22 17:27] LABS: CARBON DIOXIDE,CO2 23.8 mmol/L (21.0-32.0); POTASSIUM,K 3.2 mmol/L (3.5-5.1)
[2022-05-22] MEDS ORDERED: Iopamidol 755 MG/ML 500 ML Multipack Bottle IVPUSH STA (17:48)
[2022-05-22 19:01] LABS: CORONAVIRUS COVID-19 NAA NEGATIVE (NEGATIVE); INFLUENZA A NAA POSITIVE (NEGATIVE); INFLUENZA B NAA NEGATIVE (NEGATIVE)
[2022-05-22] MEDS ORDERED: cefTRIAXone 1 GM in Sodium Chloride 0.9% 50 ML IV ONE (19:41)
[2022-05-22] MEDS ORDERED: Potassium Chloride 20 MEQ Tab.ER PO ONE (19:42)
== END 2022-05-22 20:33 | disposition home or self-care (01) ==
LOC: MW.ED 14:00
DX: J18.9 Pneumonia, unspecified organism (principal); J10.1 Influenza due to other identified influenza virus with other respiratory manifestations; E87.6 Hypokalemia; N93.8 Other specified abnormal uterine and vaginal bleeding; Z79.899 Other long term (current) drug therapy; Z20.822 Contact with and (suspected) exposure to COVID-19
CPT/HCPCS: 0240U; 36415; 71046; 74177; 76830; 80053; 81001; 81025; 82150; 83690; 85025; 85610; 96361; 96365; 96375; 96376; 99284; A9270; J0696; J1170; J2405; J7030; Q9967

== ENCOUNTER 2022-06-12 10:03 | Emergency (ER) | payer MEDICAID ==
[2022-06-12] MEDS ORDERED: Sodium Chloride 0.9% 1,000 ML IV ONE (11:27)
[2022-06-12] MEDS ORDERED: Ondansetron 4 MG/2 ML SDV IVPUSH ONE (11:27)
[2022-06-12] MEDS ORDERED: Morphine 4 MG/ML Syringe IVPUSH ONE (11:53)
[2022-06-12 12:29] LABS: CARBON DIOXIDE,CO2 16.5 mmol/L (21.0-32.0); POTASSIUM,K 3.6 mmol/L (3.5-5.1)
[2022-06-12 13:15] LABS: CORONAVIRUS COVID-19 NAA NEGATIVE (NEGATIVE); INFLUENZA A NAA NEGATIVE (NEGATIVE); INFLUENZA B NAA NEGATIVE (NEGATIVE); RESPIRATORY SYNCYTIAL VIR NAA POSITIVE (NEGATIVE)
[2022-06-12] MEDS ORDERED: Ketorolac 30 MG/ML SDV IVPUSH ONE (13:28)
[2022-06-12] MEDS ORDERED: Acetaminophen/HYDROcodone 325-5 MG Tab PO ONE (14:45)
[2022-06-12 15:02] VITALS: BP 132/95; PULSE 77
== END 2022-06-12 14:59 | disposition home or self-care (01) ==
LOC: MW.ED 10:03
DX: K52.9 Noninfective gastroenteritis and colitis, unspecified (principal); J21.0 Acute bronchiolitis due to respiratory syncytial virus; F17.210 Nicotine dependence, cigarettes, uncomplicated; Z91.040 Latex allergy status; Z79.899 Other long term (current) drug therapy; Z86.73 Personal history of transient ischemic attack (TIA), and cerebral infarction without residual deficits; Z20.822 Contact with and (suspected) exposure to COVID-19
CPT/HCPCS: 0241U; 36415; 74177; 80053; 81003; 81025; 83690; 84703; 85025; 96361; 96374; 96375; 99284; A9270; J1885; J2270; J2405; J7030; 99283

== ENCOUNTER 2022-06-14 14:32 | Emergency (ER) | payer MEDICAID ==
[2022-06-14] MEDS ORDERED: Acetaminophen/HYDROcodone 325-5 MG Tab PO ONE (17:48)
[2022-06-14] MEDS ORDERED: Ondansetron 4 MG Tab.DIS PO ONE (18:26)
[2022-06-14 18:36] LABS: CARBON DIOXIDE,CO2 16.6 mmol/L (21.0-32.0); POTASSIUM,K 3.4 mmol/L (3.5-5.1)
[2022-06-14 19:47] VITALS: BP 132/86; PULSE 71
== END 2022-06-14 19:46 | disposition home or self-care (01) ==
LOC: MW.ED 14:32
DX: R10.84 Generalized abdominal pain (principal); Z91.040 Latex allergy status; Z86.73 Personal history of transient ischemic attack (TIA), and cerebral infarction without residual deficits; Z79.899 Other long term (current) drug therapy
CPT/HCPCS: 36415; 80053; 81003; 81025; 83605; 83690; 85025; 99284; A9270

== ENCOUNTER 2022-06-17 23:49 | Emergency (ER) | payer MEDICAID ==
[2022-06-18] MEDS ORDERED: Morphine 4 MG/ML Syringe IVPUSH ONE ×2 (00:13→03:47)
[2022-06-18] MEDS ORDERED: Ondansetron 4 MG/2 ML SDV IVPUSH ONE (00:13)
[2022-06-18 00:56] LABS: CARBON DIOXIDE,CO2 18.7 mmol/L (21.0-32.0); POTASSIUM,K 3.4 mmol/L (3.5-5.1)
[2022-06-18] MEDS ORDERED: Iopamidol 755 MG/ML 500 ML Multipack Bottle IVPUSH ONE (01:39)
[2022-06-18] MEDS ORDERED: Clindamycin Phosphate in D5W 600 MG in Premix Bag 1 BAG IV ONE ×2 (03:24)
[2022-06-18 04:20] VITALS: BP 131/89; PULSE 81
== END 2022-06-18 04:21 | disposition home or self-care (01) ==
LOC: MW.ED 23:49
DX: L02.211 Cutaneous abscess of abdominal wall (principal); Z91.040 Latex allergy status; Z86.73 Personal history of transient ischemic attack (TIA), and cerebral infarction without residual deficits; Z79.899 Other long term (current) drug therapy
CPT/HCPCS: 36415; 72191; 74175; 80053; 80307; 83690; 83735; 85025; 85610; 85730; 96365; 96375; 96376; 99284; J2270; J2405; J3490; Q9967